=== PATIENT | male | born 1960 | race Two or more races ===

== ENCOUNTER 2020-07-06 08:48 | Emergency (ER) | payer OTHER ==
[~2020-07-06] VITALS: Ht 195.6 cm; Wt 123.0 kg
[2020-07-06] MEDS ORDERED: LISI20TA31 PO (08:52)
[2020-07-06] MEDS ORDERED: COR3 PO (08:53)
[2020-07-06] MEDS ORDERED: ASPIRIN 81MG TABLET PO ONE (09:30)
[2020-07-06 09:52] LABS: BASOPHILS % 0.7 % (0.0-2.0); EOSINOPHILS % 2.3 % (0.0-5.0); HEMATOCRIT. 49.4 % (42.0-52.0); LYMPHOCYTES % 31.2 % (20.0-50.0); MEAN CORPUSCULAR HEMOGLOBIN 29.7 pg (28.0-32.0); MONOCYTES % 10.8 % (2.0-8.0); PLATELET 192 x1000/uL (130-400); RED BLOOD CELL COUNT 5.74 mill/uL (4.7-6.1); RED CELL DISTRIBUTION WIDTH 13.5 % (11.6-14.6)
[2020-07-06 09:56] LABS: CHLORIDE 108 mEq/L (98-107)
[2020-07-06 10:26] LABS: CLARITY URINE CLEAR (CLEAR); COLOR URINE YELLOW (YELLOW); KETONES URINE NEGATIVE (NEGATIVE); LEUKOCYTE ESTERASE URINE NEGATIVE (NEGATIVE); NITRITE URINE NEGATIVE (NEGATIVE); OCCULT BLOOD URINE NEGATIVE (NEGATIVE); PH URINE 5.5 (4.5-8.0); PROTEIN URINE NEGATIVE (NEGATIVE); SPECIFIC GRAVITY URINE 1.026 (1.005-1.030); UROBILINOGEN URINE 0.2 E.U./dL (0.2-1.0)
[2020-07-06] MEDS ORDERED: KETO15CR2 TP (12:21)
[2020-07-06 12:38] VITALS: BP 108/72
== END 2020-07-06 12:41 | disposition home or self-care (01) ==
LOC: ER 08:48
DX: R07.89 Other chest pain (principal)
CPT/HCPCS: 36415; 71045; 80053; 81003; 83880; 84484; 85025; 93005; 99285; Z7610